=== PATIENT | female | born 1985 | race Caucasian/White ===

== ENCOUNTER 2017-02-14 02:31 | Emergency (ER) | payer OTHER, MEDICAID ==
--- NOTE | 2017-02-14 02:58 | ED Physician Documentation ---
History of Present Illness - Stated complaint Stated Complaint: BODY FLUID EXPOSURE - Chief complaint Chief Complaint: General - History obtained from History obtained from: Patient - Additonal information Additional information: Patient is a 31 year old female with no significant past medical history who is presenting to the emergency department for fluid exposure. 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 Review of Systems Constitutional: denies: Fever Eyes: denies: Decreased vision, Photophobia, Discharge, Irritation Ears: denies: Ear pain, Drainage/discharge Nose: denies: Rhinorrhea / runny nose, Congestion Throat: denies: Sore throat Cardiac: denies: Chest pain / pressure, Palpitations Respiratory: denies: Cough, Wheezing GI: denies: Abdominal Pain, Nausea, Vomiting Skin: denies: Rash, Lesions Musculoskeletal: denies: Extremity pain Neurologic: denies: Generalized weakness, Confused, Altered mental status, LOC Immunocompromised: denies: Immunocompromised PD PAST MEDICAL HISTORY - Past Medical History Past Medical History: Yes - Past Surgical History 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 - Present Medications Home Medications: Ambulatory Orders Medication Instructions Recorded Confirmed No Known Home Medications [No 02/14/17 02/14/17 Known Home Medications] - Allergies Allergies/Adverse Reactions: Allergies Allergy/AdvReac Type Severity Reaction Status Date / Time latex Allergy Unknown Verified 02/14/17 02:40 - Social History Does the pt smoke?: No Smoking Status: Never smoker Does the pt drink ETOH?: No Does the pt have substance abuse?: No - Immunizations Immunizations are current?: Yes - POLST Patient has POLST: No PD ED PE NORMAL - Vitals Vital signs reviewed: Yes - General General: Alert and oriented X 3, No acute distress, Well developed/nourished - HEENT HEENT: Atraumatic, PERRL, Pharynx benign - Neck Neck: Supple, no meningeal sign, No JVD - Cardiac Cardiac: RRR, No murmur - Respiratory Respiratory: No respiratory distress, Clear bilaterally - Abdomen Abdomen: Soft, Non distended - Derm Derm: Normal color, Warm and dry, No rash - Extremities Extremities: No deformity, No edema - Neuro 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, No motor deficit, No sensory deficit, Normal speech - Psych Psych: Normal mood, Normal affect Results - Vitals Vitals: Vital Signs - 24 hr 06/05/17 02:35 Temperature 36.3 C L Heart Rate 91 Respiratory 16 Rate Blood Pressure 131/92 H O2 Saturation 100 Oxygen O2 Source Room air PD MEDICAL DECISION MAKING - ED course Complexity details: reviewed old records, re-evaluated patient, considered differential, d/w patient ED course: Patient was seen and examined at bedside. Patient was in no acute distress and was well appearing. labs were drawn to be followed up by employee health. Patient required no further work up and was stable for discharge with outpatient follow up. Departure - Departure Disposition: 01 Home, Self Care Clinical Impression: Employee exposure to body fluids Condition: Good Instructions: ED Body Fluid Exp HC Worker Follow-Up: employee,health [Other] - Within 3 Days Comments: The likelihood of transmission of any diseases from vomiting is unlikely. there is a change to develop a pnuemonitits from inhalation. You should monitor for signs of infection, fever or cough. If you have any of those symptoms you can return to the emergency department for evaluation. Otherwise you should follow up with employee health in the next 48 hours.
[2017-02-14 03:48] VITALS: BP 123/79
== END 2017-02-14 03:25 | disposition home or self-care (01) ==
LOC: ED 02:31
DX: Z77.21 Contact with and (suspected) exposure to potentially hazardous body fluids (principal); Y92.230 Patient room in hospital as the place of occurrence of the external cause; Y99.0 Civilian activity done for income or pay
CPT/HCPCS: 36415; 80074; 84703; 87341; 87389; 99282; 99283

== ENCOUNTER 2018-09-18 11:03 | Outpatient (CLI) | payer BC ==
--- NOTE | 2018-09-18 14:31 | XRAY Report ---
Reason: BREATHING Procedure Date: 09/18/2018 Accession Number: [id number] / [id number] Procedure: XRN - Chest 2 View X-Ray CPT Code: 37946 FULL RESULT: EXAM: CHEST RADIOGRAPHY EXAM DATE: 09/18/2018 11:26 AM. CLINICAL HISTORY: Abnormal breath sounds COMPARISON: None. TECHNIQUE: 2 views. FINDINGS: Lungs/Pleura: No focal opacities evident. No pleural effusion. No pneumothorax. Normal volumes. Mediastinum: Heart and mediastinal contours are unremarkable. Other: None. IMPRESSION: Normal 2-view chest radiography. RADIA
== END 2018-09-18 11:04 | disposition home or self-care (01) ==
LOC: DI.N 11:03
PROVIDERS: ATTEND Nurse Practitioner Gerontology
DX: R06.89 Other abnormalities of breathing (principal)
CPT/HCPCS: 71046

== ENCOUNTER 2018-09-20 11:01 | Outpatient (CLI) | payer BC ==
[2018-09-20 19:03] LABS: BASOPHILS % (AUTO) 0.3 %; EOSINOPHILS # (AUTO) 0.2 10^3/uL (0.0-0.7); EOSINOPHILS % (AUTO) 2.8 %; HGB - HEMOGLOBIN 12.5 g/dL (12.0-16.0); LYMPHOCYTES % (AUTO) 31.5 %; MEAN CORPUSCULAR HEMOGLOBIN 26.7 pg (27.0-31.0); MEAN CORPUSCULAR HGB CONC 31.9 g/dL (32.0-36.0); MEAN CORPUSCULAR VOLUME 83.7 fL (81.0-99.0); MEAN PLATELET VOLUME 10.5 fL (7.9-10.8); MONOCYTES # (AUTO) 0.4 10^3/uL (0.0-1.0); MONOCYTES % (AUTO) 6.6 %; NEUTROPHILS # (AUTO) 3.7 10^3/uL (1.5-6.6); NEUTROPHILS % (AUTO) 58.8 %; PLT - PLATELET COUNT 215 10^3/uL (130-450); RED BLOOD COUNT 4.67 10^6/uL (4.20-5.40); WHITE BLOOD COUNT 6.3 x10^3/uL (4.8-10.8)
[2018-09-20 19:34] LABS: ALBUMIN 4.1 g/dL (3.2-5.5); ALBUMIN/GLOBULIN RATIO 1.2 (1.0-2.2); ALKALINE PHOSPHATASE 81 IU/L (42-121); ALT ALANINE AMINOTRANSFERASE 16 IU/L (10-60); AST ASPARTATE AMINOTRANSFERASE 18 IU/L (10-42); BILIRUBIN,TOTAL 0.6 mg/dL (0.2-1.0); BUN - BLOOD UREA NITROGEN 12 mg/dL (6-20); CALCIUM 8.7 mg/dL (8.5-10.3); CARBON DIOXIDE - CO2 24 mmol/L (21-32); CHLORIDE 103 mmol/L (101-111); CHOL/HDL RATIO 4.2 (<4.4); CHOLESTEROL 179 mg/dL; CREATININE 0.7 mg/dL (0.4-1.0); GFR - MDRD 95 (>89); GLUCOSE 98 mg/dL (70-100); HDL CHOLESTEROL 43 mg/dL; LDL CHOLESTEROL,CALCULATED 117 mg/dL; LDL/HDL RATIO 2.7 (<4.4); SODIUM 136 mmol/L (135-145); TOTAL PROTEIN 7.5 g/dL (6.7-8.2); VLDL CHOLESTEROL 19 mg/dL
== END 2018-09-20 23:59 | disposition home or self-care (01) ==
LOC: LAB.N 11:01
PROVIDERS: ATTEND Nurse Practitioner Gerontology
DX: Z00.00 Encounter for general adult medical examination without abnormal findings (principal); Z13.9 Encounter for screening, unspecified
CPT/HCPCS: 36415; 80053; 80061; 83721; 84443; 85025

== ENCOUNTER 2022-04-08 17:41 | Outpatient (CLI) | payer BC | END 2022-04-08 17:42 | disposition critical access hospital (66) | LOC: EMS 17:41 | DX: R42 Dizziness and giddiness (principal); R06.02 Shortness of breath | CPT/HCPCS: A0425; A0427 ==

== ENCOUNTER 2022-04-08 18:15 | Emergency (ER) | payer BC, MEDICAID ==
[2022-04-08] MEDS ORDERED: SODIUM CHLORIDE 0.9% 1,000 ML IV STA (18:27)
--- NOTE | 2022-04-08 18:53 | XRAY Report ---
PROCEDURE: Chest 1 View X-Ray INDICATIONS: Chest Pain COMMENTS: Chest pain/ Pt states near syncope PRIORS: 09/18/18 TECHNIQUE: One view of the chest was acquired. COMPARISON: None FINDINGS: Surgical changes and devices: None. Lungs and pleura: No pleural effusions or pneumothorax. Lungs are clear. Mediastinum: Mediastinal contours appear normal. Heart size is normal. Bones and chest wall: No suspicious bony lesions. Overlying soft tissues appear unremarkable. IMPRESSION: No acute cardiopulmonary abnormality. Reviewed by: Andres Lebron on 04/08/2022 6:51 PM PDT Approved by: Andres Lebron on 04/08/2022 6:51 PM PDT Station ID: [id number]
--- NOTE | 2022-04-08 19:08 | ED Physician Documentation ---
History of Present Illness - Stated complaint Stated Complaint: NEAR SYNCOPE/DIZZY - Chief complaint Chief Complaint: Neuro - Additonal information Additional information: 28-year-old female was brought to the emergency department for evaluation of a near syncopal episode. She reports that she is at the [facility] and had been walking for just a short period of time up a hill when she began to feel suddenly lightheaded and dizzy. She had blurry vision in both her eyes and could only make out shapes. She sat down felt very short of breath and then asked her friend to call 911. For EMS she had a blood glucose of 250. She vomited about 500 mL in route to the emergency department and now reports that she feels better. She reports carb loading while at the community health. She does have a History of menorrhagia that required an ablation at [facility] a few months ago. She states that her cycles have started to shorten up though they remain lengthy at about 10 to 14 days each time. Review of Systems Constitutional: denies: Fever, Chills Eyes: reports: Decreased vision Ears: reports: Reviewed and negative Cardiac: denies: Chest pain / pressure, Palpitations Respiratory: reports: Dyspnea. denies: Cough GI: reports: Reviewed and negative : reports: Reviewed and negative Skin: reports: Reviewed and negative Musculoskeletal: reports: Reviewed and negative Neurologic: reports: Near syncope. 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 - Present Medications Home Medications: Ambulatory Orders Medication Instructions Recorded Confirmed No Known Home Medications 02/14/17 02/14/17 - Allergies Allergies/Adverse Reactions: Allergies Allergy/AdvReac Type Severity Reaction Status Date / Time latex Allergy Unknown Verified 02/14/17 02:40 - Social History Does the pt smoke?: No Smoking Status: Never smoker Does the pt drink ETOH?: No Does the pt have substance abuse?: No - Immunizations Immunizations are current?: Yes - POLST Patient has POLST: No PD ED PE NORMAL - General General: Alert and oriented X 3, No acute distress, Well developed/nourished, Other (Morbidly obese) - HEENT HEENT: Atraumatic, Ears normal - Neck Neck: Supple, no meningeal sign - Cardiac Cardiac: RRR, No murmur - Respiratory Respiratory: No respiratory distress, Clear bilaterally - Abdomen Abdomen: Normal bowel sounds, Soft, Non tender - Back Back: No CVA TTP - Derm Derm: Normal color, Warm and dry, No rash - Extremities Extremities: No deformity - Neuro 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, 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 Eye Opening: Spontaneous Motor: Obeys Commands Verbal: Oriented GCS Score: 15 Results - Vitals Vitals: Vital Signs - 24 hr 04/08/22 04/08/22 18:22 19:29 Temperature 36.2 C L Heart Rate 75 Heart Rate [ 81 Sitting] Heart Rate [ 83 Standing] Heart Rate [ 79 Supine] Respiratory 20 Rate Blood Pressure 131/78 H Blood Pressure 167/102 H [Sitting] Blood Pressure 176/100 H [Standing] Blood Pressure 162/99 H [Supine] O2 Saturation 100 Oxygen O2 Source Room air - EKG (time done) 1843 Rate: Rate (enter#) (82) Rhythm: NSR [place]: Normal Intervals: Normal MT QRS: Normal Ischemia: Normal ST segments Compare to prior EKG: Old EKG unavailable Computer interpretation: Agree with computer - Labs Labs: Laboratory Tests 04/08/22 04/08/22 04/08/22 19:19 19:19 19:19 WBC 11.2 H RBC 4.62 Hgb 11.4 L Hct 37.4 MCV 81.0 MCH 24.7 L MCHC 30.5 L RDW 14.8 Plt Count 260 MPV 11.3 H Neut # (Auto) 9.0 H Lymph # (Auto) 1.3 L Hendricks # (Auto) 0.7 Eos # (Auto) 0.1 Baso # (Auto) 0.0 Absolute Nucleated RBC 0.00 Nucleated RBC % 0.0 Sodium 137 Potassium 3.6 Chloride 103 Carbon Dioxide 25 Anion Gap 9.0 BUN 15 Creatinine 1.0 Estimated GFR (MDRD) 62 L Glucose 112 H Calcium 9.2 Total Bilirubin 0.5 AST 18 ALT 14 Alkaline Phosphatase 80 Troponin I High Sens < 2.3 L Total Protein 7.9 Albumin 4.2 Globulin 3.7 Albumin/Globulin Ratio 1.1 Lipase 34 Serum HCG, Qual Urine Color Urine Clarity Urine pH Ur Specific [place] Urine Protein Urine Glucose (UA) Urine Ketones Urine Occult Blood Urine Nitrite Urine Bilirubin Urine Urobilinogen Ur Leukocyte Esterase Urine RBC Urine WBC Ur Squamous Epith Cells Urine Bacteria Ur Microscopic Review Urine Culture Comments 04/08/22 04/08/22 19:19 19:32 WBC RBC Hgb Hct MCV MCH MCHC RDW Plt Count MPV Neut # (Auto) Lymph # (Auto) Hendricks # (Auto) Eos # (Auto) Baso # (Auto) Absolute Nucleated RBC Nucleated RBC % Sodium Potassium Chloride Carbon Dioxide Anion Gap BUN Creatinine Estimated GFR (MDRD) Glucose Calcium Total Bilirubin AST ALT Alkaline Phosphatase Troponin I High Sens Total Protein Albumin Globulin Albumin/Globulin Ratio Lipase Serum HCG, Qual NEGATIVE Urine Color DARK YELLOW Urine Clarity CLOUDY Urine pH 5.5 Ur Specific [place] 1.025 Urine Protein TRACE Urine Glucose (UA) NEGATIVE Urine Ketones NEGATIVE Urine Occult Blood LARGE H Urine Nitrite NEGATIVE Urine Bilirubin NEGATIVE Urine Urobilinogen 0.2 (NORMAL) Ur Leukocyte Esterase NEGATIVE Urine RBC TNTC H Urine WBC 0-3 Ur Squamous Epith Cells NONE SEEN Urine Bacteria None Seen Ur Microscopic Review INDICATED Urine Culture Comments NOT INDICATED PD MEDICAL DECISION MAKING - ED course Complexity details: considered differential, d/w patient ED course: 28-year-old female presents emergency department for evaluation of a near syncopal episode that occurred while walking at [facility]. Just prior to the fainting episode She had consumed a large amount of food including ice cream, funnel cake, cheese stick and a large lemonade. Following this she h ad a near fainting episode. 9 here in the emergency department her screening labs are essentially unremarkable. No anemia or electrolyte derangement of note. Screening EKG was negative for any electrolyte conduction abnormalities. Troponin was negative. Chest x-ray is without revealing findings. Orthostatics were also negative. I suspect This may have been near syncopal episode due to an overabundance of food causing gastric upset. Patient is scheduled to follow-up with her primary care provider next week. Emergent return precautions were discussed. Departure - Departure Disposition: 01 Home, Self Care Clinical Impression: Near syncope Condition: Stable Record reviewed to determine appropriate education?: Yes Instructions: ED Near Syncope Unkn Comments: Kell you are seen today in the emergency department [place] [employer] and had a near syncopal episode. Your episodes seem to occur after you ate a large amount of fair food. This could certainly have been the cause b ut our work-up today was completed in full. Your screening EKG showed no worrisome Electrical conduction abnormalities. Your screening hemoglobin was normal. Your electrolytes were also essentially normal. We did check your blood pressures in different positions and found that they were without findings of orthostasis. Please discuss this ED visit with your primary doctor when you follow-up next week. If at any point you develop chest pain, have shortness of air recurrent symptoms or uncontrolled vomiting then please return immediately to the ER for second evaluation
[2022-04-08 19:25] LABS: BASOPHILS % (AUTO) 0.2 %; EOSINOPHILS # (AUTO) 0.1 10^3/uL (0.0-0.7); EOSINOPHILS % (AUTO) 0.7 %; HCT - HEMATOCRIT 37.4 % (37.0-47.0); HGB - HEMOGLOBIN 11.4 g/dL (12.0-16.0); LYMPHOCYTES # (AUTO) 1.3 10^3/uL (1.5-3.5); LYMPHOCYTES % (AUTO) 11.9 %; MEAN CORPUSCULAR HEMOGLOBIN 24.7 pg (27.0-31.0); MEAN CORPUSCULAR HGB CONC 30.5 g/dL (32.0-36.0); MEAN PLATELET VOLUME 11.3 fL (7.9-10.8); MONOCYTES # (AUTO) 0.7 10^3/uL (0.0-1.0); MONOCYTES % (AUTO) 6.3 %; NEUTROPHILS % (AUTO) 80.6 %; PLT - PLATELET COUNT 260 10^3/uL (130-450); RED BLOOD COUNT 4.62 10^6/uL (4.20-5.40); RED CELL DISTRIBUTION WIDTH 14.8 % (12.0-15.0); WHITE BLOOD COUNT 11.2 x10^3/uL (4.8-10.8)
[2022-04-08 19:38] LABS: ALBUMIN 4.2 g/dL (3.2-5.5); ALBUMIN/GLOBULIN RATIO 1.1 (1.0-2.2); BILIRUBIN,TOTAL 0.5 mg/dL (0.2-1.0); CALCIUM 9.2 mg/dL (8.5-10.3); POTASSIUM 3.6 mmol/L (3.5-5.0); TOTAL PROTEIN 7.9 g/dL (6.7-8.2)
[2022-04-08 19:43] LABS: BILIRUBIN,URINE NEGATIVE (NEGATIVE); GLUCOSE, URINE (UA) NEGATIVE (NEGATIVE); KETONES,URINE (UA) NEGATIVE (NEGATIVE); LEUKOCYTE ESTERASE, URINE NEGATIVE (NEGATIVE); NITRITE,URINE NEGATIVE (NEGATIVE); OCCULT BLOOD,URINE LARGE (NEGATIVE); PH,URINE 5.5 PH (5.0-7.5); PROTEIN,URINE TRACE mg/dL (NEGATIVE); UROBILINOGEN,URINE 0.2 (NORMAL) E.U./dL (NORMAL)
[2022-04-08 19:44] LABS: CLARITY,URINE CLOUDY (CLEAR)
[2022-04-08 19:56] LABS: BACTERIA,URINE None Seen /HPF (None Seen); RBC,URINE TNTC /HPF (0-5); SQUAMOUS EPITHELIAL CELL,UR NONE SEEN (<= Few); WBC,URINE 0-3 /HPF (0-5)
[2022-04-08 20:18] LABS: HCG,QUALITATIVE BLOOD NEGATIVE
[2022-04-08 20:45] VITALS: BP 153/85
== END 2022-04-08 20:44 | disposition home or self-care (01) ==
LOC: ED 18:15
DX: R55 Syncope and collapse (principal)
CPT/HCPCS: 36415; 80053; 81001; 81003; 83690; 84484; 84703; 85025; 87086; 93005; 99284

== ENCOUNTER 2024-02-22 16:59 | Outpatient (CLI) | payer BC ==
--- NOTE | 2024-02-23 13:36 | Ultrasound Report ---
PROCEDURE: Abdomen Limited INDICATIONS: ELEVATED ALT TECHNIQUE: Real-time focused scanning was performed of the abdomen, with image documentation. COMPARISONS: None. FINDINGS: Liver: Liver is mildly enlarged measuring up to 17.9 cm in maximum dimension with mildly diffuse inc reased echogenicity. Hepatopetal flow seen in the main portal vein. Gallbladder: Contracted appearance of the gallbladder with posterior shadowing. Wall thickness is wit hin normal limits. No pericholecystic fluid. Sonographic Ferreira sign is negative. Biliary ducts: Intrahepatic bile ducts are non-dilated. Extrahepatic bile duct caliber measures 3.8 mm. Normal is 6-7 mm or less in diameter, or 10 mm or less post-cholecystectomy. Pancreas: Visualized portions of the pancreas are sonographically normal. Right kidney: Normal in size and echotexture. Right kidney measures 10.2 cm long. No hydronephrosis or nephrolithiasis. No solid masses. No complex renal cystic lesions which require follow-up. IVC: Intrahepatic inferior vena cava is patent. Miscellaneous: No free abdominal fluid. IMPRESSION: 1.Hepatomegaly and diffusely increased hepatic echogenicity are nonspecific, but most commonly encoun tered in the setting of hepatic steatosis. However, other causes of hepatocellular disease are not ex cluded. Recommend clinical correlation. 2.Contracted gallbladder with questionable gallstones. No signs of acute cholecystitis. Reviewed by: Jus Berry MD on 02/23/2024 1:35 PM PDT Approved by: Jus Berry MD on 02/23/2024 1:35 PM PDT Station ID: [id number]
== END 2024-02-22 17:00 | disposition home or self-care (01) ==
LOC: DI 16:59
PROVIDERS: ATTEND Family Medicine
DX: R16.0 Hepatomegaly, not elsewhere classified (principal); R74.01 Elevation of levels of liver transaminase levels
CPT/HCPCS: 36415; 86704; 86706; 86803; 87340

== ENCOUNTER 2024-02-22 17:31 | Outpatient (CLI) | payer BC | END 2024-02-22 17:32 | disposition home or self-care (01) | LOC: LAB 17:31 | PROVIDERS: ATTEND Family Medicine | DX: R74.01 Elevation of levels of liver transaminase levels (principal) | CPT/HCPCS: 36415; 86704; 86706; 86803; 87340 ==